=== PATIENT | male | born 1930 | race Caucasian/White ===

== ENCOUNTER → 2017-01-09 | Outpatient (CLI) | payer MEDICARE, OTHER ==
[~2017-01-09] MED LIST: AMIODARONE HCL100 MG PO; CAPSAICIN TOP; CASODEX50 MG PO; COREG6.25 MG PO; DIFLUCAN150 MG PO; FISH OIL1000 MG PO; FLOMAX0.4 MG PO; FLUNISOLIDE25 ML NOSE; LIPITOR40 MG PO; LUPRON DEPOT-22.5 MG IM; MIRALAX17 GM PO; MYCOSTATIN CREA30 GM TOP; NIZORAL30 GM TOP; NORCO 5-325 MG1 TAB PO; NORVASC5 MG PO; PRINIVIL OR ZES10 MG PO; THERA-VITE W/ B1 TAB PO; VITAMIN B-121000 MCG PO; VITAMIN D1000 UNIT PO; XARELTO20 MG PO; XYLOCAINE 2%20 MG/ML TOP
== END | disposition disaster alternative care site (69) ==
LOC: GRAD 15:00
DX: R10.9 Unspecified abdominal pain (principal); R68.81 Early satiety; R14.0 Abdominal distension (gaseous); K59.00 Constipation, unspecified